=== PATIENT | male | born 1975 | race Caucasian/White ===

== ENCOUNTER 2019-06-22 16:36 | Emergency (ER) | payer SELFPAY ==
[~2019-06-22] VITALS: Ht 193 cm; Wt 95.5 kg
[2019-06-22] MEDS ORDERED: KEFLEX500 MG PO (17:46)
[2019-06-22] MEDS ORDERED: NORCO-7.51 TAB PO (17:46)
[2019-06-22 18:12] VITALS: Ht 193 cm; Wt 95.5 kg
[2019-06-22 18:24] VITALS: BP 131/72
== END 2019-06-22 18:24 | disposition home or self-care (01) ==
LOC: D.ER 16:36
DX: S01.01XA Laceration without foreign body of scalp, initial encounter (principal); W54.0XXA Bitten by dog, initial encounter; Y93.9 Activity, unspecified; Y92.9 Unspecified place or not applicable